=== PATIENT | female | born 1960 | race Caucasian/White ===

== ENCOUNTER → 2017-02-11 | Outpatient (CLI) | payer OTHER ==
[~2017-02-11] MED LIST: BENAZEPRIL; REGLAN
--- NOTE | ~2017-02-11 | BD1 ---
[facility] A Service of [facility] RADIOLOGY TEXT RESULTS PATIENT: FLIP MESA LOCATION: [facility] : 56 UNIT #: [id number] AGE: [address]: PETRA CAR SEX: F ORDER DR: [id number] [facility] [address]. [place], [place] [address] [id number] O MR#: [id number] Acc #: [id number] NAME: FLIP MESA : 1960 SEX: F STUDY DATE/TIME: 02/11/2017 10:10 UNIT: [facility] ROOM: STUDY DESCRIPTION: BD Dexa Bone Dens 1+ Site Attending Physician: Petra Car M.D. Referring Physician: Ash Rubin M.D. Ordering Physician: Petra Car M.D. Primary Care Physician: Ash Rubin M.D. MEDICAL IMAGING REPORT This report is preliminary unless electronic signature is present EXAM DXA scan, 02/11/2017 HISTORY Status post menopause with no hormone replacement therapy. Osteopenia. Hysterectomy with removal of both ovaries. Arthritis and diabetes. Hypertension with blood pressure medication for 10 years. Smoking history for 18 years. FINDINGS Bone mineral density in the lumbar spine from L1 through L4 was 1.101 g/cm2 which is 0.5 standard deviations above the mean when compared to the young adult reference population which is within the range of normal. This is 1.8 standard deviations above the mean when compared to the age-matched population. Bone mineral density in the left femoral neck was 0.868 g/cm2 which is 0.2 standard deviations above the mean when compared to the young adult reference population which is within the range of normal. This is 1.4 standard deviations above the mean when compared to the age-matched population. IMPRESSION Bone mineral density in the lumbar spine of left hip within the range of normal. Dictated by... Jayro Figueroa M.D. THIS IS AN ELECTRONICALLY VERIFIED REPORT Jayro Figueroa M.D. at 02/12/2017 2:12 PM TIMMY/rosie [facility] A Service of [facility] RADIOLOGY TEXT RESULTS PATIENT: FLIP MESA LOCATION: [facility] : 56 UNIT #: [id number] AGE: [address]: PETRA CAR SEX: F ORDER DR: TD: 02/12/2017 04:23 JOB #: [id number] MEDICAL IMAGING REPORT Page 1 of 1 COPY
== END | disposition home or self-care (01) ==
LOC: CWCC 09:52
DX: M81.0 Age-related osteoporosis without current pathological fracture (principal)
CPT/HCPCS: 77080